=== PATIENT | male | born 1995 | race Caucasian/White ===

== ENCOUNTER 2022-05-29 09:45 | Emergency (ER) | payer BC ==
[~2022-05-29] VITALS: Ht 182.9 cm; Wt 128.0 kg
[2022-05-29 10:41] VITALS: BP 94/60
[2022-05-29 10:46] VITALS: BP 137/75
[2022-05-29 11:00] VITALS: BP 137/82
[2022-05-29 11:15] VITALS: BP 127/84
[2022-05-29 11:23] LABS: HEMOGLOBIN 16.4 g/dl (14.0-18.0); IMMATURE GRANULOCYTES 0.2 % (0.0-5.0); MEAN CELL VOLUME 86.2 fL CALC (80.0-100.0); MEAN CORPUSCULAR HGB 29.4 pG CALC (26.0-32.0); MEAN CORPUSCULAR HGB CONC 34.2 g/dL CAL (32.0-36.0); NEUT# 3.25 thou/uL (1.82-7.42); RED BLOOD COUNT 5.57 mill/uL (4.70-6.10); RED CELL DISTRI WIDTH 12.3 % (11.5-15.5)
[2022-05-29 11:43] LABS: ALBUMIN 5.4 g/dL (3.2-5.0); ALKALINE PHOSPHATASE 89 u/l (38-126); ANION GAP 18 (6-22 (CALC)); BILIRUBIN, TOTAL 0.5 mg/dL (0.0-1.4); BUN 16 mg/dL (9-20); BUN/CREATININE RATIO 14 (12-20 (CALC)); CARBON DIOXIDE 24 mmol/l (22-30); CHLORIDE 102 mmol/l (95-108); CREATININE 1.1 mg/dL (0.7-1.3); GFR FOR AFR.AMER. > 60 ML/MIN (>=60 (CALC)); GFR OTHER RACES > 60 ML/MIN (>=60 (CALC)); SGOT/AST 65 u/l (17-59); SODIUM 140 mmol/l (137-146); TOTAL PROTEIN 8.8 g/dL (6.3-8.2)
[2022-05-29 12:08] LABS: URINE BILIRUBIN - DIPSTICK NEGATIVE (NEGATIVE); URINE BLOOD DIPSTICK NEGATIVE (NEGATIVE); URINE COLOR YELLOW; URINE GLUCOSE - DIPSTICK NEGATIVE (NEGATIVE); URINE KETONE NEGATIVE (NEGATIVE); URINE LEUK ESTERASE NEGATIVE (NEGATIVE); URINE PH 5.5 (4.5-8.0); URINE PROTEIN - DIPSTICK NEGATIVE (NEG-TRACE); URINE SPECIFIC GRAVITY 1.025; URINE UROBILINOGEN - DIPSTICK 0.2 E.U./dL (0.2)
[2022-05-29 12:10] LABS: URINE NITRITE - DIPSTICK NEGATIVE (Negative)
[2022-05-29] MEDS ORDERED: ZPAK PO (13:03)
[2022-05-29] MEDS ORDERED: ONDANSETRON4 MG PO (13:04)
[2022-05-29 13:12] VITALS: BP 127/84
== END 2022-05-29 13:25 | disposition home or self-care (01) | DRG 153 ==
LOC: ED 09:45
PROVIDERS: Family Medicine
DX: J32.9 Chronic sinusitis, unspecified (principal); R62.50 Unspecified lack of expected normal physiological development in childhood; Z20.822 Contact with and (suspected) exposure to COVID-19

== ENCOUNTER 2024-05-01 20:03 | Emergency (ER) | payer BC ==
[~2024-05-01] VITALS: Ht 182.9 cm; Wt 124.0 kg
[~2024-05-01 20:03] MED LIST: ONDANSETRON4 MG PO; ZPAK PO
[2024-05-01 20:14] VITALS: BP 132/84
[2024-05-01] MEDS ORDERED: OMEGA 31000 MG PO (20:21)
[2024-05-01] MEDS ORDERED: [UNRECOGNIZED DRUG - OTHER] (20:21)
[2024-05-01] MEDS ORDERED: FIBER TAB (20:22)
[2024-05-01 20:31] VITALS: BP 131/84
[2024-05-01] MEDS ORDERED: DEXAMETHASONE SOD. PHOSPHATE 10 MG/ML VIAL IM ONE (20:35)
[2024-05-01] MEDS ORDERED: CYCLOBENZAPRINE HCL 5 MG TAB PO ONE (20:35)
[2024-05-01 20:50] LABS: BASO% 0.2 % (0-3); EOS% 2.6 % (0-8); IMMATURE GRANULOCYTES 0.2 % (0.0-5.0); MEAN CELL VOLUME 88.3 fL CALC (80.0-100.0); MEAN CORPUSCULAR HGB 29.4 pG CALC (26.0-32.0); MEAN CORPUSCULAR HGB CONC 33.3 g/dL CAL (32.0-36.0); MONO% 7.8 % (2-13); NEUT# 5.79 thou/uL (1.82-7.42); NEUT% 66.2 % (42-76); RED BLOOD COUNT 4.87 mill/uL (4.70-6.10); RED CELL DISTRI WIDTH 12.3 % (11.5-15.5)
[2024-05-01 20:54] LABS: HEMOGLOBIN 14.3 g/dl (14.0-18.0)
[2024-05-01 21:01] VITALS: BP 120/73
[2024-05-01 21:02] LABS: CREATININE 1.3 mg/dL (0.7-1.3); POTASSIUM 4.1 mmol/l (3.5-5.1)
[2024-05-01 21:31] VITALS: BP 121/76
[2024-05-01] MEDS ORDERED: NABUMETONE750 MG PO (22:27)
[2024-05-01] MEDS ORDERED: CYCLOBENZAPRINE10 MG PO (22:27)
[2024-05-01 22:47] VITALS: BP 121/76
== END 2024-05-01 22:50 | disposition home or self-care (01) | DRG 563 ==
LOC: ED 20:03
PROVIDERS: Emergency Medicine
DX: S29.012A Strain of muscle and tendon of back wall of thorax, initial encounter (principal); S29.011A Strain of muscle and tendon of front wall of thorax, initial encounter; X50.0XXA Overexertion from strenuous movement or load, initial encounter